=== PATIENT | female | born 1980 | race Caucasian/White ===

== ENCOUNTER → 2021-03-10 07:57 | Outpatient (CLI) | payer OTHER, SELFPAY ==
--- NOTE | 2021-03-10 07:59 | DI.US.S_ITS ---
PROCEDURE: US OB LIMITED INDICATIONS: INITIAL DATING. OUTSIDE/PRIOR DATING DATA: Last menstrual period (LMP): 11/15/2020 LMP-based estimated date of delivery (DARLENE): 08/22/2021 First dating scan (date and location): 03/10/2021. Estimated date of delivery (DARLENE) from first dating scan: 08/24/2021. TECHNIQUE: Real-time scanning was performed of the fetus, with image documentation and biometric measurements. COMPARISON: None. FINDINGS: General: A single living intrauterine gestation is present. Presentation: Variable. Placenta: Not evaluated at this time due to gestational age. Amniotic fluid index: Not evaluated at this time due to gestational age. heart rate: 157 beats per minute. Maternal cervical canal: Not evaluated at this time due to gestational age. biometrics: Biparietal diameter: 3.4 cm, 16 weeks, 3 days Head circumference: 12.2 cm, 16 weeks, 1 day Abdominal circumference: 10.2 cm, 16 weeks, 2 days Femur length: 2.0 cm, 15 weeks, sick Clinically estimated gestational age: Not available Composite gestational age from present scan: 16 weeks, 1 day Other: Right ovary is not visualized on this study. Left ovary is seen and is within normal limits. IMPRESSION: 1. Single intrauterine gestation with fetus in variable presentation. heart rate is 157 beats per minute. Estimated gestational age based on current study is 16 weeks, 1 day. Visually normal amount of amniotic fluid. We strive to produce accurate, complete, and clear reports of imaging services. To assist us in improving patient care, this report was composed using standard report templates and voice recognition software. Therefore, it may contain abnormal punctuation, insertions and/or omissions. Occasional wrong-word or sound-alike substitutions may occur. Though we review the report and make efforts to correct it, we do recommend that the report be read carefully in proper context to recognize any text inaccuracies. Dictated by: Gurdeep Gilliam M.D. on 03/10/2021 at 9:40 Approved by: Gurdeep Gilliam M.D. on 03/10/2021 at 9:43
[2021-03-10 09:32] LABS: Add Manual Diff / Slide Review NO; Basophils Absolute Auto 0 /uL (0-100); Basophils Percent Auto 0.2 % (0-2); Eosinophils Absolute Auto 100 /uL (0-450); Eosinophils Percent Auto 0.9 % (2-4); Hematocrit 36.3 % (36-46); Hemoglobin 12.4 g/dL (12.0-16.0); Lymphocytes Absolute Auto 1500 /uL (1100-4500); Lymphocytes Percent Auto 17.5 % (25-40); Mean Corpuscular HGB Conc 34.1 % (30-36); Mean Corpuscular Hemoglobin 28.1 PG (26-34); Mean Corpuscular Volume 82.5 fL (80-100); Monocytes Absolute Auto 500 /uL (0-900); Monocytes Percent Auto 5.4 % (3-14); Neutrophils Absolute Auto 6700 /uL (1500-7000); Platelet Count 254 X10^3/uL (150-400); Red Cell Distribution Width 13.2 % (11.6-14.8); White Blood Cell Count 8.8 X10^3/uL (4.5-11.0)
[2021-03-10 09:47] LABS: Appearance Urine UA CLEAR; Bilirubin Urine UA NEGATIVE (NEGATIVE); Glucose Urine UA NEGATIVE (Negative); Ketones Urine UA NEGATIVE (NEGATIVE); Leukocyte Esterase Urine UA NEGATIVE (NEGATIVE); Nitrite Urine UA NEGATIVE (Negative); Occult Blood Urine UA NEGATIVE (Negative); Protein Urine UA NEGATIVE (Negative); Specific Gravity Urine UA <=1.005 (1.000-1.035); Urobilinogen Urine UA 0.2 E.U./dL (0.2)
[2021-03-10 10:01] LABS: Color Urine UA Straw
[2021-03-11 04:36] LABS: RPR Screen Non Reactive (Non Reactive); Varicella IgG Antibody 752 index (Immune >165)
[2021-03-11 17:25] LABS: Hepatitis B Surface Antigen NEGATIVE s/c (NEGATIVE); Rubella Antibody IgG 8.5 IU/mL (>15)
[2021-03-11 17:42] LABS: HIV 1 & 2 Ab/Ag 4th Gen Combo NEGATIVE (NEGATIVE); Hep C Virus Ab w/Reflex Quant NEGATIVE s/c (NEGATIVE)
== END ==
PROVIDERS: PCP Student in an Organized Health Care Education/Training Program; Referring Provider Obstetrics & Gynecology; Visit Provider Obstetrics & Gynecology
DX: Z36.87 Encounter for antenatal screening for uncertain dates (principal); Z3A.16 16 weeks gestation of pregnancy
CPT/HCPCS: 36415; 76815; 80055; 81003; 86787; 86803; 86850; 86900; 86901; 87086; 87389

== ENCOUNTER → 2021-03-12 17:32 | Outpatient (CLI) | payer OTHER, SELFPAY ==
[2021-03-12 17:37] LABS: Specimen Label NATERA KIT
[2021-03-15 21:35] LABS: AFP Value 47.4 ng/mL (.); Gest Age on Col Date 16.1 weeks (.); Gestational Age Ultrasound (.); Insulin Dep Diabetes No (.); OSBR Risk 1IN 1442 (.); Results Report (.); Test Results *Screen Negative* (.)
== END ==
PROVIDERS: PCP Student in an Organized Health Care Education/Training Program; Referring Provider Obstetrics & Gynecology; Visit Provider Obstetrics & Gynecology
DX: O09.521 Supervision of elderly multigravida, first trimester (principal); Z3A.16 16 weeks gestation of pregnancy
CPT/HCPCS: 36415; 82105

== ENCOUNTER → 2021-04-06 11:54 | Outpatient (CLI) | payer OTHER, SELFPAY ==
--- NOTE | 2021-04-06 11:55 | DI.US.S_ITS ---
PROCEDURE: US OB >= 14 WEEKS FETUS INDICATIONS: ANATOMY OUTSIDE/PRIOR DATING DATA: Last menstrual period (LMP): 11/15/2020. LMP-based estimated date of delivery (DARLENE): 08/22/2021. First dating scan (date and location): 03/10/2021. Estimated date of delivery (DARLENE) from first dating scan: 08/24/2021. The calculations are made using the ultrasound DARLENE of 08/24/2021. TECHNIQUE: Real-time scanning was performed of the fetus, with image documentation and biometric measurements. Endovaginal scanning: Not performed COMPARISON: [facility], OB LIMITED, 03/10/2021, 8:15. FINDINGS: General: A single living intrauterine gestation is present. Presentation: Variable. Placenta: Placental position is anterior; marginal previa (the lower placental edge is 0.6 cm from the internal os). Amniotic fluid index: 16.1 cm, normal range is 5-24 cm. Single deepest vertical pocket is 5.7 cm. heart rate: 144 beats per minute. Maternal cervical canal: 3.5 cm long. Normal lower limit is 2.5 cm. biometrics: Biparietal diameter: 20 weeks 0 day Head circumference: 19 weeks 6 days Abdominal circumference: 21 weeks 2 days Femur length: 19 weeks 6 days Clinically estimated gestational age: 20 weeks 0 day Composite gestational age from present scan: 20 weeks 2 days Estimated weight and percentile: 360 g; 75% Anatomic survey: Neuro: Ventricles are non-dilated at less than 10 mm. Cisterna magna is normal at 3-11 mm. Cerebellum is normal in size and morphology. Nuchal skin fold: Normal at less than 6 mm between 14-21 weeks gestational age. Face: Nose and lips, facial profile are normal. Spine: No evidence for spina bifida. Heart: 4-chambered heart is present, with normal ventricular outflow tracts. Diaphragm: Diaphragm is intact. Stomach: Left-sided stomach is present. Kidneys: No hydronephrosis. Normal is less than 5 mm in 2nd trimester, less than 7 mm in 3rd trimester. Cord: 3-vessel cord has orthotopic insertion. Bladder: Normal in size. Extremities: All 4 extremities identified. IMPRESSION: 1. A single living intrauterine gestation with appropriate interval growth. 2. Marginal placent previa. Recommend imaging follow-up. 3. Normal anatomic survey. We strive to produce accurate, complete, and clear reports of imaging services. To assist us in improving patient care, this report was composed using standard report templates and voice recognition software. Therefore, it may contain abnormal punctuation, insertions and/or omissions. Occasional wrong-word or sound-alike substitutions may occur. Though we review the report and make efforts to correct it, we do recommend that the report be read carefully in proper context to recognize any text inaccuracies. Dictated by: Shanae Yates M.D. on 04/06/2021 at 15:11 Approved by: Shanae Yates M.D. on 04/06/2021 at 15:17
== END ==
PROVIDERS: PCP Student in an Organized Health Care Education/Training Program; Referring Provider Obstetrics & Gynecology; Visit Provider Obstetrics & Gynecology
DX: O44.22 Partial placenta previa NOS or without hemorrhage, second trimester (principal); Z3A.20 20 weeks gestation of pregnancy
CPT/HCPCS: 76811

== ENCOUNTER → 2021-05-19 15:04 | Outpatient (CLI) | payer OTHER, SELFPAY ==
[2021-05-19 17:29] LABS: Hemoglobin 11.4 g/dL (12.0-16.0)
[2021-05-19 17:46] LABS: GTT (PREG) 1 Hour PP 50gm Dose 116 mg/dL (76-139)
== END ==
PROVIDERS: PCP Student in an Organized Health Care Education/Training Program; Referring Provider Obstetrics & Gynecology; Visit Provider Obstetrics & Gynecology
DX: Z34.82 Encounter for supervision of other normal pregnancy, second trimester (principal); Z3A.25 25 weeks gestation of pregnancy
CPT/HCPCS: 36415; 82950; 85014; 85018

== ENCOUNTER → 2021-06-18 15:40 | Outpatient (CLI) | payer OTHER, SELFPAY ==
[2021-06-18 16:24] LABS: Add Manual Diff / Slide Review NO; Basophils Absolute Auto 0 /uL (0-100); Basophils Percent Auto 0.2 % (0-2); Eosinophils Absolute Auto 100 /uL (0-450); Eosinophils Percent Auto 0.9 % (2-4); Hematocrit 34.1 % (36-46); Hemoglobin 11.4 g/dL (12.0-16.0); Lymphocytes Absolute Auto 1900 /uL (1100-4500); Lymphocytes Percent Auto 14.9 % (25-40); Mean Corpuscular HGB Conc 33.4 % (30-36); Mean Corpuscular Hemoglobin 27.4 PG (26-34); Mean Corpuscular Volume 82.1 fL (80-100); Monocytes Absolute Auto 800 /uL (0-900); Neutrophils Absolute Auto 10000 /uL (1500-7000); Platelet Count 272 X10^3/uL (150-400); Red Blood Cell Count 4.15 X10^6/uL (4.0-5.2); Red Cell Distribution Width 13.7 % (11.6-14.8); White Blood Cell Count 12.9 X10^3/uL (4.5-11.0)
[2021-06-18 17:14] LABS: Alanine Aminotransferase 15 IU/L (<35); Albumin 3.7 g/dL (3.5-5.0); Albumin Globulin Ratio 1.1 (1.0-2.8); Alkaline Phosphatase 70 U/L (38-126); Aspartate Aminotransferase 20 IU/L (14-36); BUN Creatinine Ratio 12.3 (6-22); Bilirubin Total 0.3 mg/dL (0.2-1.3); Blood Urea Nitrogen 8 mg/dL (7-17); Calcium 8.8 mg/dL (8.4-10.2); Carbon Dioxide 22 mmol/L (22-32); Chloride 107 mmol/L (98-107); Estimated Glomerular Filt Rate > 60 mL/min (>60); Globulin 3.3 g/dL (1.7-4.1); Glucose 112 mg/dL (70-100); HEMOLYSIS < 15 (0-50); Potassium 3.8 mmol/L (3.4-5.1); Sodium 136 mmol/L (137-145); Uric Acid 4.2 mg/dL (2.5-6.2)
[2021-06-18 21:02] LABS: Creatinine Urine Random 77.5 mg/dL; Protein (Total) Urine Random 10 mg/dL (0-12); Protein Creatinine Ratio Urine 0.12 GRAM/24H
== END ==
PROVIDERS: PCP Student in an Organized Health Care Education/Training Program; Referring Provider Obstetrics & Gynecology; Visit Provider Obstetrics & Gynecology
DX: R03.0 Elevated blood-pressure reading, without diagnosis of hypertension (principal)
CPT/HCPCS: 36415; 80053; 82570; 84156; 84550; 85025

== ENCOUNTER → 2021-07-30 15:47 | Outpatient (CLI) | payer OTHER, SELFPAY ==
[2021-07-31 13:27] LABS: Strep Grp B PCR POS for Grp B Strep
== END ==
LOC: LAB 15:49 → OB 08-02 10:20
PROVIDERS: PCP Student in an Organized Health Care Education/Training Program; Referring Provider Obstetrics & Gynecology; Visit Provider Obstetrics & Gynecology
DX: Z34.83 Encounter for supervision of other normal pregnancy, third trimester (principal); Z3A.36 36 weeks gestation of pregnancy
CPT/HCPCS: 59025; 87653; G0378

== ENCOUNTER 2021-08-06 14:01 | Outpatient (CLI) | payer OTHER, SELFPAY ==
--- NOTE | 2021-08-06 14:31 | PM.OBTRLD ---
Visit Information Visit Information Date of evaluation: 08/06/21 Primary OB Provider: Isaac Salcedo Reason for Evaluation: Yes non-stress test Comments/Additional reasons for admission: Advanced maternal age [facility] Medical History (Updated 08/13/21 @ 15:47 by Isaac Salcedo MD) Abnormal Pap smear of cervix (~2004) Anesthesia complication Arthritis of left hip (~2015) Cataract (~1988) Chronic eczema (~2015) Eczema (~2015) Foot pain (~2018) Joint inflammation (~2012) Migraine (~2018) Mild exercise-induced asthma Recurrent sinus infections (~1997) Right ovarian cyst (~08/2020) Seasonal allergies (~2000) Surgical History (Updated 03/18/21 @ 07:56 by Unique Lindo) Anesthesia History of cataract surgery (~1988) History of colposcopy History of strabismus surgery (~1992) Family History (Updated 03/18/21 @ 07:56 by Unique Lindo) Mother Sjogren's disease Rheumatoid arthritis Father No problems noted. Grandmother Arrhythmia Hyperthyroidism Grandfather Type 1 diabetes Myocardial infarction Stroke Thyroid disease Grandmother Lung cancer Grandfather Type 2 diabetes mellitus Lung cancer Brother High cholesterol Brother Mental health disorder Social History marital status: number of children: 0 household members: spouse lives independently: Yes caregiver/support person: No housing: house (base housing) pets and animals: No education level: master's degree ([employer]) occupational status: unemployed special ebony needs: No seatbelt use: always do you feel safe at home: Yes Smoking Status: Former smoker Tobacco: How many years used: 8 (3 packs / week) quit status: quit date established (Quit 2005) second hand exposure: No alcohol intake: former (Pre-: minimal, <1 drink/week) substance use type: does not use during the past year weight has: other (Lost 20 lbs, gain 20 lbs.) well-balanced diet: daily or most days daily servings fruits/ve-4 caffeine: Yes (Decaf only, not much. ) Type(s) of exercise: walking (also hiking.) and other (rowing machine.) frequency: 3-4 times per week duration: 30-45 minutes/day Exam HENMT Head: normal to inspection, normocephalic and atraumatic Eyes General: appearance normal, both eyes and all related structures Resp Effort & Inspection: normal respiratory effort and able to speak in complete sentences Auscultation: clear to auscultation bilaterally Cardio Rate: regular rate Rhythm: regular rhythm Heart Sounds: S1 normal, S2 normal and no murmurs GI Inspection: normal to inspection Palpation: soft and no hepatosplenomegaly Extrem Right lower extremity: normal to inspection Evaluation Evaluation Baseline heart rate: 125 Variability: Moderate (11-25) monitor accelerations: Present Monitor Decelerations: Absent Category of Tracing: Reactive Status: Category l Diagnosis, Plan/Disposition Plan/Disposition Plan: Continue weekly NSTs. Induction at 39+ weeks due to advanced maternal age. OB Disposition: home
== END 2021-08-06 14:35 | disposition home or self-care (01) ==
LOC: LABOR 14:05 → OB 08-09 10:49
PROVIDERS: PCP Student in an Organized Health Care Education/Training Program; Referring Provider Obstetrics & Gynecology; Visit Provider Obstetrics & Gynecology
DX: O09.513 Supervision of elderly primigravida, third trimester (principal); Z3A.37 37 weeks gestation of pregnancy
CPT/HCPCS: 59025; G0378; G0379

== ENCOUNTER 2021-08-13 13:49 | Outpatient (CLI) | payer OTHER, SELFPAY | END 2021-08-13 14:33 | disposition home or self-care (01) | LOC: LABOR 14:00 → OB 08-16 09:47 | PROVIDERS: PCP Student in an Organized Health Care Education/Training Program; Referring Provider Obstetrics & Gynecology; Visit Provider Obstetrics & Gynecology | DX: O09.513 Supervision of elderly primigravida, third trimester (principal); Z3A.38 38 weeks gestation of pregnancy | CPT/HCPCS: 59025; G0378; G0379 ==

== ENCOUNTER 2021-08-17 18:00 | Inpatient (IN) | payer OTHER, SELFPAY ==
--- NOTE | 2021-08-17 18:31 | P.HPOB_ITS ---
OB HPI Date/Time Date of admission: 08/17/21 Date Patient Seen: 08/17/21 Time Patient Seen: 18:31 History of Present Condition Chief complaint: Pre Induction : 2 Para: 0 Estimated Date of Delivery: 08/22/21 Estimated Gestational Age (weeks): 39+2 Narrative: Es Huggins is a 41 year old admitted now at 39+2 for cervical ripening and induction due to advanced maternal age. Her course has been unremarkable. Low lying placenta noted at her 20 week anatomy scan but no bleeding noted at any point in the . CfDNA is negative. GBS is positive. Indications Indication for induction OB: other (Advanced maternal age) History of Present care: good care Dating criteria: LMP confirmed by 1st trimester US Ultrasounds: normal 1st trimester US and normal mid trimester US Obstetrical complications: none and other (Advanced maternal age) Preadmission Labs Blood type: O (+) positive -: Antibody screen: negative, GBS status: positive, HBsAG: negative, HIV: negative and RPR/VDLR: negative -: Chlamydia screen: not detected and Gonorrhea screen: not detected -: Rubella: not immune and Varicella: immune HCT: 31.1 HCAB: negative PAP: Normal Cell-free DNA: Negative 1 hr GTT: 116 Prior (ies) History: SAB x 1 Evaluation Evaluation Baseline heart rate: 125 Variability: Moderate (11-25) monitor accelerations: Present Monitor Decelerations: Absent Category of Tracing: Reactive Status: Category l Dilation (cm): 0 Effacement (%): 75 Dilation: Closed Effacement: 60-70% station: -2 Position of cervix: mid Consistency: medium Loomis score: 5 PFSH Medical History (Updated 08/13/21 @ 15:47 by Isaac Salcedo MD) Abnormal Pap smear of cervix (~2004) Anesthesia complication Arthritis of left hip (~2015) Cataract (~1988) Chronic eczema (~2015) Eczema (~2015) Foot pain (~2018) Joint inflammation (~2012) Migraine (~2018) Mild exercise-induced asthma Recurrent sinus infections (~1997) Right ovarian cyst (~08/2020) Seasonal allergies (~2000) Surgical History (Updated 03/18/21 @ 07:56 by Unique Lindo) Anesthesia History of cataract surgery (~1988) History of colposcopy History of strabismus surgery (~1992) Family History (Updated 03/18/21 @ 07:56 by Unique Lindo) Mother Sjogren's disease Rheumatoid arthritis Father No problems noted. Grandmother Arrhythmia Hyperthyroidism Grandfather Type 1 diabetes Myocardial infarction Stroke Thyroid disease Grandmother Lung cancer Grandfather Type 2 diabetes mellitus Lung cancer Brother High cholesterol Brother Mental health disorder Social History marital status: number of children: 0 household members: spouse lives independently: Yes caregiver/support person: No housing: house (base housing) pets and animals: No education level: master's degree ([employer]) occupational status: unemployed special ebony needs: No seatbelt use: always do you feel safe at home: Yes Smoking Status: Former smoker Tobacco: How many years used: 8 (3 packs / week) quit status: quit date established (Quit 2005) second hand exposure: No alcohol intake: former (Pre-: minimal, <1 drink/week) substance use type: does not use during the past year weight has: other (Lost 20 lbs, gain 20 lbs.) well-balanced diet: daily or most days daily servings fruits/ve-4 caffeine: Yes (Decaf only, not much. ) Type(s) of exercise: walking (also hiking.) and other (rowing machine.) frequency: 3-4 times per week duration: 30-45 minutes/day Meds Home Medications and Allergies Home Medications Medication Instructions Recorded Confirmed Type cetirizine 10 mg tablet (Zyrtec) 10 mg PO DAILY PRN Allergy Symptoms 03/10/21 08/17/21 History prenat.vits,anish,nvh-ebdf-wwinm 1 tab PO DAILY 03/10/21 08/17/21 History glebprpngz-sboqhmsjnkbjm-yvfvrlaq 2 cap PO Q4-6H PRN pain #60 caps 08/10/21 08/17/21 Rx 50 mg-300 mg-40 mg capsule (Fioricet) nystatin 100,000 unit/gram topical 1 applic topical BID #30 grams 08/10/21 08/17/21 Rx cream Allergies Allergy/AdvReac Type Severity Reaction Status Date / Time No Known Drug Allergies Allergy Verified 08/18/21 06:35 Review of Systems Review of Systems Narrative: Problem-specific ROS positives included in HPI OB Exam HENMT Head: normal to inspection, normocephalic and atraumatic Eyes General: appearance normal, both eyes and all related structures Resp Effort & Inspection: normal respiratory effort and able to speak in complete sentences Auscultation: clear to auscultation bilaterally Cardio Rate: regular rate Rhythm: regular rhythm Heart Sounds: S1 normal, S2 normal and no murmurs Extremities Lower extremity: Yes normal to inspection GI Inspection: normal to inspection Palpation: Yes soft and Yes no hepatosplenomegaly Uterus Location (Fundal Height): 38 Presentation: vertex Estimated Weight (lbs): 8 Objective Labs Result Diagrams: 08/17/21 18:20 Assessment and Plan Assessment and Plan Assessment and Plan narrative: ASSESSMENT 1. Intrauterine gestation, self, vertex, 39+2 weeks EGA 2. GBS positive 3. History of low lying placenta PLAN 1. Admit for ripening 2. US to confirm resolution of low lying placenta 3. GBS prophylaxis once in labor 4. See orders
[2021-08-17 18:44] LABS: Add Manual Diff / Slide Review NO; Basophils Absolute Auto 0 /uL (0-100); Basophils Percent Auto 0.4 % (0-2); Eosinophils Absolute Auto 100 /uL (0-450); Eosinophils Percent Auto 0.7 % (2-4); Hematocrit 31.1 % (36-46); Hemoglobin 10.6 g/dL (12.0-16.0); Lymphocytes Absolute Auto 2100 /uL (1100-4500); Lymphocytes Percent Auto 19.2 % (25-40); Mean Corpuscular HGB Conc 33.9 % (30-36); Mean Corpuscular Hemoglobin 26.2 PG (26-34); Mean Corpuscular Volume 77.2 fL (80-100); Monocytes Absolute Auto 900 /uL (0-900); Monocytes Percent Auto 8.4 % (3-14); Neutrophils Absolute Auto 7600 /uL (1500-7000); Neutrophils Percent Auto 71.3 % (50-75); Platelet Count 253 X10^3/uL (150-400); Red Blood Cell Count 4.03 X10^6/uL (4.0-5.2); White Blood Cell Count 10.7 X10^3/uL (4.5-11.0)
[2021-08-17 19:07] LABS: COVID19 -Nasal RAPID Negative (Negative)
[2021-08-17] MEDS: miSOPROStoL 25 MCG TABLET 50 MCG PO (19:17)
[2021-08-18] MEDS: miSOPROStoL 25 MCG TABLET 50 MCG PO (03:08)
[2021-08-18 06:36] VITALS: BP 125/61
--- NOTE | 2021-08-18 07:46 | DI.US.S_ITS ---
PROCEDURE: US OB LIMITED INDICATIONS: HISTORY OF LOW LYING PLACENTA OUTSIDE/PRIOR DATING DATA: Last menstrual period (LMP): 11/15/2020. LMP-based estimated date of delivery (DARLENE): 08/22/2021. First dating scan (date and location): 03/10/2021. Estimated date of delivery (DARLENE) from first dating scan: 08/24/2021. TECHNIQUE: Real-time scanning was performed of the fetus, with image documentation. Endovaginal scanning: Not performed. COMPARISON: [facility], OB >= 14 WEEKS FETUS, 04/06/2021, 12:20. [facility] OB >= 14 WEEKS FETUS, 06/04/2021, 15:43. [facility], OB LIMITED, 03/10/2021, 8:15. FINDINGS: A single living intrauterine gestation is present. Presentation: Vertex. Placenta: Placental position is anterior, without previa. Placenta edge is 9.6 cm from the internal os. Amniotic fluid index: 12.9 cm, normal range is 5-24 cm. Single deepest vertical pocket is 4.2 cm. heart rate: 135 beats per minute. Maternal cervical canal: Length is not well visualized. IMPRESSION: 1. Single living intrauterine , gestational age of 39 weeks 1 day by established dating. 2. Low lying placenta has resolved. No evidence of placenta previa. Dictated by: Cedric Hassan M.D. on 08/18/2021 at 9:15 Approved by: Cedric Hassan M.D. on 08/18/2021 at 9:24
[2021-08-18] MEDS: LACTATED RINGERS 1,000 ML 100 ML IV ×2 (09:18→16:39)
[2021-08-18] MEDS: OXYTOCIN PREMIX 30 UNIT/500 ML PLAST..BAG IV (09:43)
[2021-08-18] MEDS: ONDANSETRON 4 MG/2 ML INJ 8 MG IV (16:08)
[2021-08-18] MEDS: ACETAMINOPHEN 325 MG TABLET 975 MG PO (16:10)
--- NOTE | 2021-08-18 17:48 | PM.OBPNLAB ---
Date/Time Date Patient Seen: 08/18/21 Time Patient Seen: 17:49 Pain Control Pain control: tolerating well Pelvic Exam Dilation (cm): 0 Effacement (%): 80 station: -2 Amniotic membrane status: Intact Comments: Very light show when on commode. Amnisure negative earlier. 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 Options discussed. Will stop pitocin, allow regular diet overnight and place cervidil with plans to place cervical reddy if cervix rotates anteriorly and cervix dilates sufficiently to place reddy.
[2021-08-18] MEDS: DINOPROSTONE VAG (CERVIDIL) 10 MG VAG (20:17)
[2021-08-19] MEDS: LACTATED RINGERS 1,000 ML 100 ML IV ×3 (01:29→18:50)
--- NOTE | 2021-08-19 07:53 | PM.OBPNLAB ---
Date/Time Date Patient Seen: 08/19/21 Time Patient Seen: 07:30 Pain Control Pain control: tolerating well Comments: Cervidil placed 201408/18/2021 with significant cramping overnight rating pain at 4/10. Pelvic Exam Dilation (cm): 0 Effacement (%): 80 station: -2 Amniotic membrane status: Intact Contractions Contractions on admission: none Monitor mode: External Contraction frequency (min): 4 Contraction pattern: Regular Contraction phase: Resting Contraction intensity: Moderate Status status: Category l Heart Rate Baseline: 125 Monitor Accelerations: Present Monitor Decelerations: Absent Monitor Variability: Moderate Assessment and Plan Assessment: induction ongoing Plan: other Comments: Will attempt cervical Munoz bulb placement and re-initiate Pitocin.
[2021-08-19] MEDS: PENICILLIN G POTASSIUM 5,000,000 UNIT in DEXTROSE 5% IN WATER 250 ML 250 UNIT IV (10:15)
--- NOTE | 2021-08-19 10:30 | PM.OBPNLAB ---
Date/Time Date Patient Seen: 08/19/21 Time Patient Seen: 10:00 Pain Control Pain control: tolerating well Pelvic Exam Dilation (cm): 1 Effacement (%): 90 station: -2 Amniotic membrane status: Leaking Comments: Speculum exam shows small amount of clear fluid; Amnisure positive. Contractions Contractions on admission: none Monitor mode: External Contraction frequency (min): 4 Contraction pattern: Irregular Contraction phase: Resting Contraction intensity: Moderate Status status: Category l Heart Rate Baseline: 125 Monitor Accelerations: Present Monitor Decelerations: Absent Monitor Variability: Moderate Assessment and Plan Assessment: induction ongoing Plan: begin patient augmentation Comments: Unable to insert Munoz bulb w/ speculum or via SVE. Will initiate GBS prophylaxis and pitocin augmentation. OK for VARGAS at any time as we're committed to delivery w/ SROM.
[2021-08-19] MEDS: OXYTOCIN PREMIX 30 UNIT/500 ML PLAST..BAG IV (12:08)
[2021-08-19] MEDS: WATER IV ×2 (14:27→18:19)
[2021-08-19] MEDS: PENICILLIN POTASSIUM IV ×2 (14:27→18:19)
[2021-08-19] MEDS: DEXTROSE 5% IV ×2 (14:27→18:19)
[2021-08-19] MEDS: FENT 2MCG/ML BUPIV 0.125% EPI 200 MCG/100 ML PLAST..BAG 8 MCG EPIDURAL (15:56)
[2021-08-19] MEDS: diphenhydrAMINE 50 MG/ML VIAL 25 MG IV (20:14)
--- NOTE | 2021-08-19 21:13 | PM.OBPNLAB ---
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 OA position Contractions Monitor mode: External Pitocin rate (mU/min): 16 Contraction frequency (min): 4 Contraction pattern: Regular Contraction intensity: Strong/Firm Status status: Category ll Heart Rate Baseline: 150 Monitor Decelerations: Variable (Initially recurrent, moderate to severe, now only episodic mild to moderate after position change.) Monitor Variability: Moderate Assessment and Plan Assessment: active labor and induction ongoing Comments: Progressing quickly in active phase, only anterior lip. Will recheck cervix after several additional contractions. Close monitoring of EFM, category 2 but overall reassuring after position change. Dr. Salcedo, her primary Ob called for delivery. He arrived now at 925 and will assume continued care of his patient
--- NOTE | 2021-08-19 21:39 | PM.OBPNLAB ---
Date/Time Date Patient Seen: 08/19/21 Time Patient Seen: 21:39 Pain Control Pain control: epidural Pelvic Exam Dilation (cm): 10 Effacement (%): 100 station: +2 Amniotic membrane status: Leaking Contractions Monitor mode: External Contraction frequency (min): 4 Contraction pattern: Regular Contraction phase: Resting Contraction intensity: Strong/Firm Status status: Category ll Heart Rate Baseline: 135 Monitor Accelerations: Present Monitor Decelerations: Episodic and Variable Monitor Variability: Moderate Assessment and Plan Assessment: induction ongoing Plan: continuous present management Comments: Start pushing in 2nd stage; anticipate .
[2021-08-19] MEDS: PENICILLIN G POTASSIUM 3,000,000 UNIT/50 ML FROZ.PIGGY 100 UNIT IV (22:43)
--- NOTE | 2021-08-19 23:33 | PM.OBPRVD ---
Labor & Delivery Delivery date: 08/19/21 Intrapartal Events: None Cervical ripening method: per misoprostal protocol Induction method: per pitocin protocol Delivery augmentation: pitocin Delivery monitor: external FHT Route of delivery: L&D Laceration Description: Perineal - 2nd Degree Delivery repair: chromic Estimated blood loss (mL): 150 Anesthesia Type: Epidural Complications: None Narrative: The patient progressed quickly through the active portion of the 1st age the and her epidural was turned off so as to be able to restore some motor function in the 2nd stage. The patient pushed well and delivered over an intact perineum a viable female infant Apgars of 8 and 9 with a weight of 3363 g (7 lb 6.6 oz). A single shoulder cord was noted but there was no shoulder dystocia. Following delivery, skin to skin contact was initiated immediately and delayed cord clamping performed for greater than 60 seconds. The umbilical cord was then doubly clamped and cut or with for blood obtained for routine testing. The placenta was then delivered with gentle cord traction and suprapubic countertraction. The placenta was carefully inspected and seen to be intact with 3 vessels and a central insertion of the cord. IV Pitocin was administered following delivery of the placenta and lochia was moderate. Inspection of the perineum showed a second-degree perineal laceration in the midline which was repaired with 2-0 chromic in the usual manner. Patient tolerated the delivery process well and infant was doing well at the completion of the delivery process. Estimated blood loss was approximately 150 cc. Sponge and needle count were correct at the completion of procedure. Baby 1: gender: Female Presentation: vertex Position: Left Occiput Anterior Placenta delivery description: Spontaneous Cord Vessel Description: 3 Vessels score (1 min): 8 score (5 min): 9 weight: 7 lb 6.626 oz Plan for aftercare: Routine care
[2021-08-20 06:04] LABS: Add Manual Diff / Slide Review NO; Basophils Absolute Auto 100 /uL (0-100); Basophils Percent Auto 0.4 % (0-2); Eosinophils Absolute Auto 0 /uL (0-450); Eosinophils Percent Auto 0.2 % (2-4); Hematocrit 33.2 % (36-46); Hemoglobin 10.7 g/dL (12.0-16.0); Lymphocytes Absolute Auto 1700 /uL (1100-4500); Lymphocytes Percent Auto 12.3 % (25-40); Mean Corpuscular HGB Conc 32.3 % (30-36); Mean Corpuscular Hemoglobin 25.2 PG (26-34); Monocytes Absolute Auto 900 /uL (0-900); Monocytes Percent Auto 6.3 % (3-14); Neutrophils Absolute Auto 11400 /uL (1500-7000); Neutrophils Percent Auto 80.8 % (50-75); Platelet Count 221 X10^3/uL (150-400); Red Blood Cell Count 4.26 X10^6/uL (4.0-5.2); Red Cell Distribution Width 14.7 % (11.6-14.8); White Blood Cell Count 14.1 X10^3/uL (4.5-11.0)
[2021-08-20] MEDS: IBUPROFEN 600 MG TABLET PO ×2 (08:51→17:51)
[2021-08-20] MEDS: DOCUSATE 100 MG CAPSULE PO (08:52)
--- NOTE | 2021-08-20 17:39 | PM.OBPN.1 ---
Subjective - OB Subjective Patient comments: no complaints [place] baby status: doing well [place] feeding status: exclusively breast feeding Date Patient Seen: 08/20/21 Time Patient Seen: 17:40 Interval history: Patient has done extremely well since delivery with minimal bleeding and minimal perineal discomfort. She is having significant peripheral edema but her blood pressure is normal and her legs are nontender. She is tolerating regular diet and has had return of bowel and bladder function. Exam Const General: cooperative and comfortable Nutritional Appearance: average body habitus Orientation: alert and oriented x3 HENMT Head: normal to inspection Eyes General: appearance normal, both eyes and all related structures Neck Neck: normal visual inspection Resp Effort & Inspection: normal respiratory effort and able to speak in complete sentences GI Inspection: normal to inspection Palpation: soft, no hepatosplenomegaly, mass (Firm, minimally tender fundus U-4) and No tender Extrem General: no calf tenderness and edema (1+, bilateral symmetrical) Psych Appearance: grossly normal Mental Status: mental status grossly normal Speech and Movement: speech and movement normal Mood: congruent mood Affect: normal affect Attitude: cooperative Thought Process: normal Thought Content: normal Judgment: judgment good Objective Labs Result Diagrams: 08/20/21 05:57 Labs: Laboratory Results - last 24 hr 08/20/21 05:57 WBC 14.1 H RBC 4.26 Hgb 10.7 L Hct 33.2 L MCV 78.0 L MCH 25.2 L MCHC 32.3 RDW 14.7 Plt Count 221 Neut % (Auto) 80.8 H Lymph % (Auto) 12.3 L Navarro % (Auto) 6.3 Eos % (Auto) 0.2 L Baso % (Auto) 0.4 Neut # (Auto) 40485 H Lymph # (Auto) 1700 [place] # (Auto) 900 Eos # (Auto) 0 Baso # (Auto) 100 Assessment & Plan Plan day: 1 plan OB: routine care Comments: OK for discharge but the has not yet voided therefore infant is not yet cleared for discharge. Time Spent With Patient Time: Total time spent is greater than 50% in coordination of care (as documented) at patient's floor/unit and/or counseling patient: Time with patient: less than 15 minutes
--- NOTE | 2021-08-20 17:48 | P.DS_ITS ---
Discharge Providers Provider Date of admission: 08/17/21 18:00 Discharge Date: 08/20/21 Primary care physician: Maycol Craig MD Consults: 08/20/21 23:29 Consult to Manager Of Disaster Recovery Routine Comment: Discharge provider: Isaac Salcedo MD Summary Hospital Course Date Patient Seen: 08/20/21 Time Patient Seen: 17:49 Diagnoses: Intrauterine gestation, 39+ 3 weeks, delivered Advanced maternal age GBS positive status Hospital Course: The patient was admitted on the evening of 08/17/2021 and initially underwent Cytotec ripening. Pitocin was initiated on 08/18/2021 but no progress was made and Cervidil was inserted on the evening of 08/18/2021. Pitocin was re- initiated on the morning of 08/19/2021 and subsequently an epidural was placed. The patient progressed well and on the evening of 08/19/2021 delivered a viable female . Following delivery the patient and her baby have done extremely well with prompt return of bowel and bladder function, she is tolerating regular diet, ambulating independently, and her pain is relieved well with oral pain medications. Patient will be discharged at this time to home in an afebrile no rmotensive condition with medications to include ibuprofen 600 mg p.o. q.6 hours as needed pain and norethindrone 0.35 mg tabs 1 p.o. q.d. for contraception. Prior to discharge the patient was counseled regarding precautionary symptoms, medications, plans for follow-up in so forth will be seen in the office in 6 weeks for follow-up. Peripartum Data Infant Delivery Method: Natural Vaginal Laceration Description: Perineal - 2nd Degree Episiotomy description: None complications: none Discharge Diagnosis (1) Normal vaginal delivery: Status: Acute Status at Discharge Cognitive/behavioral status at discharge: oriented Functional status at discharge: independent ambulation Overall status at discharge: patient is progressing back to baseline Time Spent with Patient Time attestation: Total time spent providing and/or coordinating discharge services: Time spent: Less than 30 minutes Objective Labs Result Diagrams: 08/20/21 05:57 Labs: Laboratory Results - last 24 hr 08/20/21 05:57 WBC 14.1 H RBC 4.26 Hgb 10.7 L Hct 33.2 L MCV 78.0 L MCH 25.2 L MCHC 32.3 RDW 14.7 Plt Count 221 Neut % (Auto) 80.8 H Lymph % (Auto) 12.3 L [place] % (Auto) 6.3 Eos % (Auto) 0.2 L Baso % (Auto) 0.4 Neut # (Auto) 60189 H Lymph # (Auto) 1700 [place] # (Auto) 900 Eos # (Auto) 0 Baso # (Auto) 100 Exam Const General: cooperative and comfortable Nutritional Appearance: average body habitus Orientation: alert and oriented x3 HENMT Head: normal to inspection Ears: hearing grossly normal bilaterally Face and sinus: face symmetric Eyes General: appearance normal, both eyes and all related structures Neck Neck: normal visual inspection Resp Effort & Inspection: normal respiratory effort and able to speak in complete sentences GI Inspection: normal to inspection Palpation: soft, no hepatosplenomegaly, mass (Firm, minimally tender fundus, U - 4) and No tender External Female Exam: other (Intact perineum with minimal bruising, lochia light) Extrem General: no calf tenderness and edema (Bilateral 1+ pedal edema) Psych Appearance: grossly normal Mental Status: mental status grossly normal Speech and Movement: speech and movement normal Mood: congruent mood Affect: normal affect Attitude: cooperative Thought Process: normal Thought Content: normal Judgment: judgment good Discharge Plan Discharge Plan Patient Disposition: Home Provider Discharge Comment: Please review the written instructions you received when you were discharged from the hospital. Your follow-up appointment will be scheduled for 6 weeks after your delivery and I look forward to seeing you then. If in the meanwhile however you have any issues, concerns, or problems, please feel free to contact me through either the office phone at [phone] to or via the patient portal. Discharge orders & Medications Prescriptions: New ibuprofen 600 mg Tablet 600 mg PO Q6HR PRN (Reason: Fever/Mild Pain (1-3)) Qty: 60 2RF norethindrone (contraceptive) 0.35 mg tablet 0.35 mg PO DAILY Qty: 84 4RF Continued [id number] [Fioricet] 50-300-40 mg capsule 2 cap PO Q4-6H PRN (Reason: pain) Qty: 60 0RF Rx Instructions: do not exceed 6 caps per day nystatin 100,000 unit/gram cream 1 applic topical BID Qty: 30 4RF cetirizine [Zyrtec] 10 mg tablet 10 mg PO DAILY PRN (Reason: Allergy Symptoms) prenat.vits,anish,njn-bdtg-jvray Tablet 1 tab PO DAILY Follow up/Referrals: Maycol Craig DO [Primary Care Provider] - Discharge Health Status Multidrug resistant organism: No MDRO Diet/Activity/Treatments Diet: Diet as Tolerated Activity: As tolerated. Other treatments: [id number] Tylenol baby taken in addition to ibuprofen for pain relief. Ujlo-bxn-twcfsej stool softeners may be used to relieve constipation. Skin/Wound/Dressing Care Report to your healthcare provider any signs of infection, such as:: chills, fever, increased pain, unusual drainage and unusual redness Visit Report/Discharge Packet Instructions: DI for Labor and Delivery, Vaginal , DI for and Nipple Soreness Discharge Data Primary Care Provider: Maycol Craig
[2021-08-20 23:59] VITALS: BP 125/61; PULSE 85; RESP 13; TEMP 36.4
== END 2021-08-20 23:59 | disposition home or self-care (01) | DRG 807 ==
PROVIDERS: Admitting Provider Obstetrics & Gynecology; PCP Student in an Organized Health Care Education/Training Program; Referring Provider Obstetrics & Gynecology; Visit Provider Obstetrics & Gynecology
DX: O44.43 Low lying placenta NOS or without hemorrhage, third trimester (principal); Z37.0 Single live birth; Z3A.39 39 weeks gestation of pregnancy; O99.824 Streptococcus B carrier state complicating childbirth; O76 Abnormality in fetal heart rate and rhythm complicating labor and delivery; O70.1 Second degree perineal laceration during delivery; Z20.822 Contact with and (suspected) exposure to COVID-19
CPT/HCPCS: 01967; 36415; 59050; 59200; 59400; 76815; 85025; 86850; 86900; 86901; 87635; C9803; G0379; J1200; J2405; J2540; J2590